=== PATIENT | male | born 1955 | race Caucasian/White ===

== ENCOUNTER → 2019-08-04 | Outpatient (CLI) | payer OTHER ==
--- NOTE | 2019-08-09 08:06 | PATH ---
[facility] [place] [address] PATHOLOGY RPT PROCEDURE Name: TIARA VELAZQUEZ Room #: REG [facility]#: [id number] Admission: 08/04/19 Date of : 51 Discharge: Report #: [id number] Path Case #: [id number] Note [facility] Accession Number: [id number] TESTS RESULT FLAG UNITS REF RANGE LAB Clinician Provided Cytology Information No. of containers..01 Other (Miscellaneous) Source: RT THYROID NODULE DIAGNOSIS: RIGHT THYROID NODULE, FINE NEEDLE ASPIRATION NEGATIVE FOR MALIGNANT EPITHELIAL CELLS. BETHESDA CATEGORY II. SPECIMEN CONSISTS OF GROUPS OF MACROFOLLICULAR CELLS, HEMOSIDERIN-LADEN MACROPHAGES, SCANT COLLOID AND BLOOD. THE PATTERN IS COMPATIBLE WITH ADENOMATOID NODULE. COLLOID IS PRESENT. THIS INTERPRETATION INCLUDES EVALUATION OF A CELL BLOCK. NEGATIVE FOR NUCLEAR FEATURES OF PAPILLARY THYROID CARCINOMA. Comment: Please note sample may not be entirely inbound sales representative; correlate clinically and follow-up as indicated. Pathologist ICD10: 02 E04.1 Signed out by: Lizzy Christina MD, Pathologist NPI- [id number] Performed by: Stefany Amato, Door Clamper (ASCP) Gross description: 01 25 ML, RED, CLEAR /LCS 09/07/1840 0000 Local FLAG LEGEND: L-Low Normal,H-High Normal,LL-Alert Low,HH-Alert High <-Panic Low,>-Panic High,A-Abnormal,AA-Critical Abnormal Performed at: 01 [facility] [address] [place] [address] [address] [place] [address] Jericho Fabian MD, [address] [address] Lizzy Christina MD, Specimen Comment: A courtesy copy of this report has been sent to [phone], [phone] Specimen Comment: [id number] [address] PATHOLOGY RPT PROCEDURE Name: MARCUSTIARA Room #: REG [facility] Christy#: [id number] Admission: 08/04/19 Date of : 51 Discharge: Report #: [id number] Path Case #: [id number] Specimen Comment: [id number] Specimen Comment: Report sent to / DR FRANK Specimen Comment: Report sent to Performed at: [address] [id number] MD Jericho Fabian MD Phone: [phone]
== END | disposition home or self-care (01) ==
LOC: ULTRA 08:19
DX: E04.1 Nontoxic single thyroid nodule (principal); I10 Essential (primary) hypertension; Z79.899 Other long term (current) drug therapy

== ENCOUNTER → 2020-01-24 | Outpatient (CLI) | payer OTHER | LOC: ULTRA 07:57 | DX: N28.1 Cyst of kidney, acquired (principal); R14.0 Abdominal distension (gaseous) ==

== ENCOUNTER → 2020-02-29 | Outpatient (CLI) | payer OTHER | LOC: SJCVC 09:53 | PROVIDERS: ATTEND Internal Medicine | DX: I44.4 Left anterior fascicular block (principal); R94.31 Abnormal electrocardiogram [ECG] [EKG]; I10 Essential (primary) hypertension; E78.00 Pure hypercholesterolemia, unspecified; E78.5 Hyperlipidemia, unspecified; Z82.49 Family history of ischemic heart disease and other diseases of the circulatory system; Z87.891 Personal history of nicotine dependence; Z79.899 Other long term (current) drug therapy; Z79.82 Long term (current) use of aspirin ==